=== PATIENT | male | born 1995 | race African-American/Black ===

== ENCOUNTER 2017-02-09 00:01 | Emergency (ER) | payer SELFPAY ==
--- NOTE | 2017-02-09 00:09 | NUR ---
Patient refused EKG, offered x3. Patient refused to remove clothing, refused to place items down to allow staff to check his EKG
--- NOTE | 2017-02-09 00:15 | NUR ---
Patient states " I am reporting everyone here, I want the complaint forms". Patient offered to speak with the Shuttle Van Driver. Sh[employer] Driver contacted and made aware of issue.
--- NOTE | 2017-02-09 00:18 | NUR ---
Patient offered x 3 by 2 separate staff members to complete his EKG. patient is very agressive to staff, refusing to have EKG done or vital signs assessment. patient refused traige. Addendum: 02/09/17 at 0019 by KASANDRA Patient offered x 3 by 2 separate staff members to complete his EKG. patient is very agressive to staff, refusing to have EKG done or vital signs assessment. patient refused triage.
--- NOTE | 2017-02-09 00:20 | NUR ---
Patient refused further assessment or care from Staff. Patient states " I can go to [facility] and snap my fingers, the nurses do what I want. I don't like the staff here".
--- NOTE | 2017-02-09 00:27 | NUR ---
environmental services supervisor is present on unit. Patient states he does not want any medical care at this time. Patient states " I was just in [place], they do this fast for every EKG I get." environmental services supervisor Ira speaking with patient.
--- NOTE | 2017-02-09 00:40 | NUR ---
= Talked to patient. He said he is upset because they were asking information besides what he has told them. They were asking for ID and he doesn't have. Apparently, they were disrespectful. They will do EKG, they wanted his shirt off and put down his phone. In other hospital, they usually just lift up his shirt. Explained regarding routine information that every ER will do, and it will start from registration process and they usually asked for ID, insurance card. He said he is not happy. They will just have to believe what he said. Advised him to go back inside so he will be seen by MD but he refused. Instead, he asked for a "Complaint form". Given a piece of ordaz paper to write on. He wrote his complaint on it and left ER at [id number].
== END 2017-02-09 00:50 | disposition home or self-care (01) ==
LOC: ER 00:01
DX: R07.89 Other chest pain (principal); F17.200 Nicotine dependence, unspecified, uncomplicated; Z53.21 Procedure and treatment not carried out due to patient leaving prior to being seen by health care provider
CPT/HCPCS: 93005